=== PATIENT | male | born 1985 | race Two or more races ===

== ENCOUNTER 2022-10-12 23:50 | Emergency (ER) | payer OTHER ==
[~2022-10-12] VITALS: Ht 185.4 cm; Wt 95.3 kg
[2022-10-13] MEDS ORDERED: PRILOSEC OTC20 MG PO (00:21)
[2022-10-13] MEDS ORDERED: ACETAMINOPHEN500 M2 PO (05:10)
[2022-10-13] MEDS ORDERED: INTESTINEX680 M1 PO (05:10)
[2022-10-13] MEDS ORDERED: PEPCID AC20 MG PO (05:10)
[2022-10-13] MEDS ORDERED: DICY20TA PO (05:10)
== END 2022-10-13 05:20 | disposition home or self-care (01) ==
LOC: ER 23:50
DX: B34.9 Viral infection, unspecified (principal); R53.81 Other malaise; A05.9 Bacterial foodborne intoxication, unspecified; R10.9 Unspecified abdominal pain; R19.7 Diarrhea, unspecified; R11.2 Nausea with vomiting, unspecified; Z20.822 Contact with and (suspected) exposure to COVID-19